=== PATIENT | female | born 1980 | race Caucasian/White ===

== ENCOUNTER 2022-01-11 09:22 | Outpatient (CLI) | payer BC | END 2022-01-11 09:23 | disposition home or self-care (01) | LOC: CSHMRI 09:22 | PROVIDERS: ATTEND Neurological Surgery | DX: M54.2 Cervicalgia (principal); Z98.1 Arthrodesis status | CPT/HCPCS: 72040; 72141 ==

== ENCOUNTER 2023-05-28 09:17 | Outpatient (CLI) | payer BC | END 2023-05-28 09:18 | disposition home or self-care (01) | LOC: CSHCP 09:17 | PROVIDERS: ATTEND Internal Medicine Critical Care Medicine | DX: J45.909 Unspecified asthma, uncomplicated (principal) | CPT/HCPCS: 94010; 94726; 94729; 94760 ==

== ENCOUNTER 2025-05-04 18:34 | Emergency (ER) | payer BC ==
[2025-05-04] MEDS ORDERED: Ibuprofen 200 MG TAB ONE (20:17)
[2025-05-04] MEDS ORDERED: HYDROmorphone 0.5 MG/0.5 ML SYRINGE ONE (21:46)
== END 2025-05-04 21:46 | disposition home or self-care (01) ==
LOC: CSHERS 18:34
DX: S16.1XXA Strain of muscle, fascia and tendon at neck level, initial encounter (principal); J45.909 Unspecified asthma, uncomplicated; Z79.51 Long term (current) use of inhaled steroids; V49.59XA Passenger injured in collision with other motor vehicles in traffic accident, initial encounter
CPT/HCPCS: 72125; 96372; J1171